=== PATIENT | female | born 1940 | race Caucasian/White ===

== ENCOUNTER 2017-04-12 13:39 | Emergency (ER) | payer MEDICARE, OTHER ==
[2017-04-12 13:52] VITALS: BP 112/52; PULSE 58; RESP 18; O2SAT 100
[2017-04-12] MEDS ORDERED: Sodium Chloride 0.9% 1,000 ML IV STA (14:08)
--- NOTE | 2017-04-12 14:16 | ED PDOC ---
Syncope/Near Syncope/Dizziness Time Seen by Provider: 04/12/17 13:43 Chief Complaint (Nursing): Dizziness/Lightheaded Chief Complaint (Provider): Dizziness/Lightheaded History Per: Patient History/Exam Limitations: no limitations Onset/Duration Of Symptoms: Days (x1) Current Symptoms Are (Timing): Still Present Additional Complaint(s): Karen Wren is a 76 year old female with previous medical history of hypertension, who presents to the emergency department with a complaint of dizziness associated with diaphoresis ongoing for 1 day. Denied any chest pain, abdominal pain or loss of consciousness. PMD: Lili Viveros MD Past Medical History Reviewed: Historical Data, Nursing Documentation, Vital Signs Vital Signs: Last Vital Signs Temp Pulse 58 L 04/12/17 13:48 Resp 18 04/12/17 13:48 BP 112/52 L 04/12/17 13:48 Pulse Ox 100 04/12/17 13:48 - Medical History PMH: Hiatal Hernia, HTN Denies: Chronic Kidney Disease - Surgical History Surgical History: Endoscopy - Family History Family History: States: Unknown Family Hx - Social History Current smoker - smoking cessation education provided: No Ex-Smoker (has not smoked in the last 12 months): No Alcohol: None Drugs: Denies - Home Medications Home Medications: Ambulatory Orders Medication Instructions Recorded Atenolol [Tenormin] 50 mg PO DAILY 05/02/16 Omeprazole 40 mg PO DAILY 05/26/16 Ranitidine HCl [Zantac 75] 75 mg PO DAILY 05/26/16 Ciprofloxacin HCl [Cipro] 500 mg PO BID #16 tablet 05/30/16 metroNIDAZOLE [Flagyl] 500 mg PO Q8H #24 tab 05/30/16 Meclizine [Meclizine*] 25 mg PO Q8 #15 tab 04/12/17 - Allergies Allergies/Adverse Reactions: Allergies Allergy/AdvReac Type Severity Reaction Status Date / Time No Known Allergies Allergy Verified 05/26/16 07:53 Review of Systems ROS Statement: Except As Marked, All Systems Reviewed And Found Negative Constitutional: Positive for: Sweats Cardiovascular: Negative for: Chest Pain Gastrointestinal: Negative for: Abdominal Pain Neurological: Positive for: Dizziness. Negative for: Other (loss of consciousness) Physical Exam - Reviewed Nursing Documentation Reviewed: Yes Vital Signs Reviewed: Yes - Physical Exam Appears: Positive for: Well, Non-toxic, No Acute Distress Head Exam: Positive for: ATRAUMATIC, NORMAL INSPECTION, NORMOCEPHALIC Skin: Positive for: Normal Color Eye Exam: Positive for: Normal appearance, EOMI, PERRL. Negative for: Nystagmus ENT: Positive for: Normal ENT Inspection Neck: Positive for: Normal Cardiovascular/Chest: Positive for: Regular Rate, Rhythm. Negative for: Chest Non Tender Respiratory: Positive for: Normal Breath Sounds, Accessory Muscle Use. Negative for: Decreased Breath Sounds, Crackles, Rales, Rhonchi, Wheezing, Respiratory Distress Gastrointestinal/Abdominal: Positive for: Normal Exam, Bowel Sounds, Soft. Negative for: Tenderness Extremity: Positive for: Normal ROM. Negative for: Tenderness, Pedal Edema, Deformity Neurologic/Psych: Positive for: Alert (x3), shirt hemmer II-XII (intact), Oriented. Negative for: Motor/Sensory Deficits, Aphasia - Laboratory Results Result Diagrams: 04/12/17 14:10 04/12/17 14:10 - ECG O2 Sat by Pulse Oximetry: 100 (RA) Pulse Ox Interpretation: Normal Medical Decision Making Medical Decision Making: Initial Impression: Dizziness Initial Plan: * EKG * CMP * CBC * NS 1,000ml IV per 100mls/hr ~ Scribe Attestation: Documented by Chela Meeks, acting as a scribe for Jonathan Blood MD. Provider Scribe Attestation: All medical record entries made by the Scribe were at my direction and personally dictated by me. I have reviewed the chart and agree that the record accurately reflects my personal performance of the history, physical exam, medical decision making, and the department course for this patient. I have also personally directed, reviewed, and agree with the discharge instructions and disposition. Disposition - Clinical Impression Clinical Impression: Dizziness - Patient ED Disposition Is Patient to be Admitted: No Counseled Patient/Family Regarding: Studies Performed, Diagnosis, Need For Followup, Rx Given - Disposition Referrals: [facility] [place] [Outside] Disposition: Routine/Home Disposition Time: 15:16 Condition: FAIR Prescriptions: Meclizine [Meclizine*] 25 mg PO Q8 #15 tab Instructions: Vertigo (ED) Forms: [facility] [employer] (Arabic) Print Language: OCCITAN
[2017-04-12 14:33] LABS: BASO % 0.3 % (0.0-2.0); EOS # 0.1 K/uL (0.0-0.7); EOS % 1.3 % (0.0-4.0); HEMATOCRIT 42.9 % (34.0-47.0); LYMPH # 1.6 K/uL (1.0-4.3); LYMPH % 20.5 % (20.0-40.0); MEAN CELL VOLUME 84.4 fl (81.0-99.0); MEAN CORPUSCULAR HEMOGLOBIN 27.5 pg (27.0-31.0); MEAN CORPUSCULAR HGB CONC 32.5 g/dL (33.0-37.0); MEAN PLATELET VOLUME 11.2 fl (7.2-11.7); MONO # 0.5 K/uL (0.0-0.8); MONO % 6.4 % (0.0-10.0); NEUT # 5.7 K/uL (1.8-7.0); NEUT % 71.5 % (50.0-75.0); NRBC % 0.1 % (0.0-0.0); RED CELL DISTRIBUTION WIDTH 14.6 % (11.5-14.5)
[2017-04-12 14:43] LABS: ALB/GLOB RATIO 1.5 (1.0-2.1); ALKALINE PHOSPHATASE 78 U/L (38-126); ALT/SGPT 40 U/L (9-52); AST/SGOT 25 U/L (14-36); BILIRUBIN,TOTAL 0.9 mg/dl (0.2-1.3); BLOOD UREA NITROGEN 27 mg/dl (7-17); CALCIUM 9.6 mg/dL (8.4-10.2); CARBON DIOXIDE 22 mmol/L (22-30); CHLORIDE 104 mmol/L (98-107); GFR AFRICAN-AMERICAN > 60; GLUCOSE,RANDOM 163 mg/dL (65-105); POTASSIUM 3.6 MMOL/L (3.6-5.0); SODIUM 144 mmol/l (132-148); TOTAL PROTEIN 7.5 G/DL (6.3-8.2)
--- NOTE | 2017-04-13 09:30 | CARD ---
APPROVED REPORT EKG Measurement Heart [id number] <Conclusion> Sinus bradycardia Possible Left atrial enlargement Borderline ECG
== END 2017-04-12 15:30 | disposition home or self-care (01) ==
LOC: H.ER 13:39
DX: R42 Dizziness and giddiness (principal); I10 Essential (primary) hypertension
CPT/HCPCS: 80053; 82948; 85025; 93005; 99284; J7040

== ENCOUNTER 2018-09-08 19:55 | Emergency (ER) | payer MEDICAID, MEDICARE, OTHER ==
[2018-09-08 19:55] VITALS: BMI 24.9
[2018-09-08 20:12] VITALS: BP 148/80; PULSE 67; RESP 18; TEMP 98.4; O2SAT 97
[2018-09-08] MEDS ORDERED: Albuterol-Ipratrop 3 mg / 0.5 (3 ml) UD IH STA (20:23)
[2018-09-08] MEDS ORDERED: Albuterol-Ipratrop 3 mg / 0.5 (3 ml) UD INH STA (20:23)
--- NOTE | 2018-09-08 20:28 | ED PDOC ---
HPI: CCC, URI, Sore Throat Time Seen by Provider: 09/08/18 20:12 Chief Complaint (Nursing): Chest Pain Chief Complaint (Provider): Cough History Per: Patient History/Exam Limitations: no limitations Onset/Duration Of Symptoms: Days (1 month) Additional Complaint(s): Cough, congestion, runny nose for 1 month. No weakness, headaches, dizziness, fever. Gets coughing spells. Saw pcp and got mucinex and not helping. Chest pain only on excessive cough. No dyspnea. No weakness, dizziness. No leg swelling. Past Medical History Reviewed: Nursing Documentation, Vital Signs Vital Signs: Last Vital Signs Temp 98.4 F 09/08/18 20:09 Pulse 67 09/08/18 20:09 Resp 18 09/08/18 20:09 BP 148/80 09/08/18 20:09 Pulse Ox 97 09/08/18 20:09 - Medical History PMH: Hiatal Hernia, HTN Denies: Chronic Kidney Disease - Surgical History Surgical History: Endoscopy - Family History Family History: States: Unknown Family Hx - Immunization History Hx Tetanus Toxoid Vaccination: No Hx Influenza Vaccination: No Hx Pneumococcal Vaccination: No - Home Medications Home Medications: Ambulatory Orders Medication Instructions Recorded Atenolol [Tenormin] 50 mg PO DAILY 05/02/16 Naproxen 500 mg PO DAILY #20 tablet 09/16/17 Albuterol Sulfate [Proair Hfa] 0.09 mg IH Q6H PRN #2 inh 09/08/18 Benzonatate [Tessalon Perles] 100 mg PO BID PRN 5 Days sgl 09/08/18 predniSONE [predniSONE Tab] 20 mg PO BID 5 Days tab 09/08/18 - Allergies Allergies/Adverse Reactions: Allergies Allergy/AdvReac Type Severity Reaction Status Date / Time No Known Allergies Allergy Verified 09/16/17 16:58 Review of Systems ROS Statement: Except As Marked, All Systems Reviewed And Found Negative ENT: Positive for: Nose Congestion Cardiovascular: Positive for: Chest Pain (on cough) Respiratory: Positive for: Cough, Sputum Physical Exam - Reviewed Nursing Documentation Reviewed: Yes Vital Signs Reviewed: Yes - Physical Exam Appears: Positive for: Non-toxic, No Acute Distress Head Exam: Positive for: ATRAUMATIC, NORMAL INSPECTION, NORMOCEPHALIC Skin: Positive for: Normal Color, Warm, DRY Eye Exam: Positive for: EOMI, Normal appearance, PERRL ENT: Positive for: Nasal Congestion Neck: Positive for: Normal, Painless ROM, Supple Cardiovascular/Chest: Positive for: Regular Rate, Rhythm Respiratory: Positive for: Decreased Breath Sounds, Wheezing (on end expiration b/l) Gastrointestinal/Abdominal: Positive for: Normal Exam, Soft. Negative for: Tenderness Back: Positive for: Normal Inspection. Negative for: L CVA Tenderness, R CVA Tenderness Extremity: Positive for: Normal ROM. Negative for: Tenderness, Pedal Edema Neurologic/Psych: Positive for: Alert, Oriented - ECG ECG: Positive for: Interpreted By Me ECG Rhythm: Positive for: Normal QRS, Normal ST Segment, Sinus Rhythm O2 Sat by Pulse Oximetry: 97 Pulse Ox Interpretation: Normal - Radiology X-Ray: Interpreted by Me, Viewed By Me X-Ray Interpretation: No Acute Disease - Progress ED Course And Treament: 2124: Stable. AAOx3. Pain free. Tolerated PO. Fu with pcp. Disposition - Clinical Impression Clinical Impression: Bronchitis - Patient ED Disposition Is Patient to be Admitted: No Counseled Patient/Family Regarding: Studies Performed, Diagnosis, Need For Followup, Rx Given - Disposition Referrals: [facility] [Outside] - 09/10/18 Disposition: Routine/Home Disposition Time: 21:26 Condition: STABLE Additional Instructions: Return if not better in 3 days. Prescriptions: Albuterol Sulfate [Proair Hfa] 0.09 mg IH Q6H PRN #2 inh PRN Reason: Wheezing Benzonatate [Tessalon Perles] 100 mg PO BID PRN 5 Days sgl PRN Reason: Cough predniSONE [predniSONE Tab] 20 mg PO BID 5 Days tab Instructions: Acute Bronchitis
--- NOTE | 2018-09-09 10:57 | RAD ---
Date of service: 09/08/2018 HISTORY: Cough. COMPARISON: No prior. TECHNIQUE: Chest PA and lateral FINDINGS: LUNGS: No active pulmonary disease. PLEURA: No significant pleural effusion identified. No pneumothorax apparent. CARDIOVASCULAR: No aortic atherosclerotic calcification present. Normal cardiac size. No pulmonary vascular congestion. OSSEOUS STRUCTURES: No significant abnormalities. VISUALIZED UPPER ABDOMEN: Normal. OTHER FINDINGS: None. IMPRESSION: No active disease. Concordant results with the preliminary interpretation rendered by the emergency department physician procedure.
== END 2018-09-08 22:44 | disposition home or self-care (01) ==
LOC: H.ER 19:55
DX: J40 Bronchitis, not specified as acute or chronic (principal); I10 Essential (primary) hypertension; Z79.899 Other long term (current) drug therapy

== ENCOUNTER 2018-10-18 20:42 | Emergency (ER) | payer MEDICARE, OTHER ==
[2018-10-18 20:42] VITALS: BMI 24.9
[2018-10-18 21:04] VITALS: BP 133/67; PULSE 63; RESP 16; TEMP 97.6; O2SAT 98
[2018-10-18] MEDS ORDERED: Lidocaine 5% Patch TD STA (21:50)
[2018-10-18] MEDS ORDERED: Lidocaine 5% Patch TD ONE (22:00)
--- NOTE | 2018-10-18 22:45 | ED PDOC ---
HPI: Chest Pain Time Seen by Provider: 10/18/18 21:12 Chief Complaint (Nursing): Chest Pain Chief Complaint (Provider): Chest Pain History Per: Patient History/Exam Limitations: no limitations Onset/Duration Of Symptoms: Hrs (x 7) Current Symptoms Are (Timing): Still Present Context: Recent Trauma Quality: "Pain" Exacerbating Factors: Deep Breathing Additional Complaint(s): 78 year old female with a history of HTN presents to the ED for evaluation of chest pain after a fall at 2 pm this afternoon. Patient tripped and fell, hitting chest, earlier today. She now reports localized pain worsened by deep breath. Patient took Nabumetone with mild relief. Denies head injury, headaches, dizziness and shortness of breath. PMD: Dr. Lili Viveros - Risk Factors TAD Risk Factors: Pos: Hypertension Past Medical History Reviewed: Historical Data, Nursing Documentation, Vital Signs Vital Signs: Last Vital Signs Temp 97.6 F 10/18/18 21:00 Pulse 63 10/18/18 21:00 Resp 16 10/18/18 21:00 BP 133/67 10/18/18 21:00 Pulse Ox 98 10/18/18 21:00 - Medical History PMH: Hiatal Hernia, HTN Denies: Chronic Kidney Disease - Surgical History Surgical History: Endoscopy - Family History Family History: States: Unknown Family Hx - Immunization History Hx Tetanus Toxoid Vaccination: No Hx Influenza Vaccination: No Hx Pneumococcal Vaccination: No - Home Medications Home Medications: Ambulatory Orders Medication Instructions Recorded Atenolol [Tenormin] 50 mg PO DAILY 05/02/16 Naproxen 500 mg PO DAILY #20 tablet 09/16/17 Albuterol Sulfate [Proair Hfa] 0.09 mg IH Q6H PRN #2 inh 09/08/18 Benzonatate [Tessalon Perles] 100 mg PO BID PRN 5 Days sgl 09/08/18 predniSONE [predniSONE Tab] 20 mg PO BID 5 Days tab 09/08/18 Lidocaine 5% [Lidoderm] 1 ea TD QAM #10 patch 10/18/18 Naproxen [Naprosyn] 500 mg PO Q12 #14 tab 10/18/18 - Allergies Allergies/Adverse Reactions: Allergies Allergy/AdvReac Type Severity Reaction Status Date / Time No Known Allergies Allergy Verified 09/16/17 16:58 Review of Systems ROS Statement: Except As Marked, All Systems Reviewed And Found Negative Constitutional: Negative for: Fever, Chills Cardiovascular: Positive for: Chest Pain Respiratory: Negative for: Shortness of Breath Neurological: Negative for: Headache, Dizziness Physical Exam - Reviewed Nursing Documentation Reviewed: Yes Vital Signs Reviewed: Yes - Physical Exam Appears: Positive for: No Acute Distress Head Exam: Positive for: ATRAUMATIC, NORMAL INSPECTION, NORMOCEPHALIC Skin: Positive for: Normal Color, Warm, Dry Eye Exam: Positive for: EOMI, Normal appearance, PERRL Neck: Positive for: Normal, Painless ROM Cardiovascular/Chest: Positive for: Regular Rate, Rhythm, Other (tenderness over fifth and sixth intercostal space at mid-clavicular line bilaterally). Negative for: Chest Non Tender, Murmur Respiratory: Positive for: Normal Breath Sounds. Negative for: Wheezing, Respiratory Distress Gastrointestinal/Abdominal: Positive for: Normal Exam, Soft. Negative for: Tenderness Back: Positive for: Normal Inspection. Negative for: L CVA Tenderness, R CVA Tenderness Extremity: Positive for: Normal ROM (x 4). Negative for: Deformity Neurological/Psych: Positive for: Awake, Alert, Normal Tone, Oriented (x 3). Negative for: Motor/Sensory Deficits - ECG O2 Sat by Pulse Oximetry: 98 (RA) Pulse Ox Interpretation: Normal Medical Decision Making Medical Decision Makin:48 Impression: 78 year old female with a chest wall injury Bilateral rib x-ray Trial of Toradol Lidoderm patch 22:40 X-ray is negative for fracture, dislocation and pneumothorax. Patient is stable for discharge with a diagnosis of rib contusion. Scribe Attestation: Documented by Gracie Whalen, acting as a scribe for Jae Marquez MD Provider Scribe Attestation: All medical record entries made by the Scribe were at my direction and personally dictated by me. I have reviewed the chart and agree that the record accurately reflects my personal performance of the history, physical exam, medical decision making, and the department course for this patient. I have also personally directed, reviewed, and agree with the discharge instructions and disposition. Disposition - Clinical Impression Clinical Impression: Rib contusion - Patient ED Disposition Is Patient to be Admitted: No - Disposition Disposition: Routine/Home Disposition Time: 22:40 Condition: STABLE Prescriptions: Lidocaine 5% [Lidoderm] 1 ea TD QAM #10 patch Naproxen [Naprosyn] 500 mg PO Q12 #14 tab Instructions: Bruised Rib (DC) Forms: [employer] (Montenegrin) Print Language: [place]
--- NOTE | 2018-10-19 09:16 | CARD ---
APPROVED REPORT Date of service: 10/18/2018 EKG Measurement Heart [id number] <Conclusion> Sinus bradycardia Otherwise normal ECG
--- NOTE | 2018-10-19 14:31 | RAD ---
Date of service: 10/18/2018 PROCEDURE: Radiographs of the chest and bilateral ribs HISTORY: Pain after fall COMPARISON: Comparison made with prior chest radiograph dated 09/08/2018. TECHNIQUE: Frontal radiograph of the chest and multiple oblique radiographs of the bilateral ribs were obtained. 5 views obtained. FINDINGS: RIGHT RIBS: No fracture or focal lesion visualized. LEFT RIBS: No of acute displaced right rib fracture or focal lesion visualized. LUNGS: Minimal bibasilar atelectasis left greater than right PLEURA: No pneumothorax or pleural fluid. CARDIOVASCULAR: Normal cardiac size. No pulmonary vascular congestion. No aortic atherosclerotic calcification present OTHER FINDINGS: Mild multilevel degenerative spondylosis of the thoracic spine IMPRESSION: Minimal bibasilar atelectasis left greater than right. No evidence of pneumothorax no definitive evidence displaced right rib fracture.. If symptoms persist or occult rib fracture suspected clinically, recommend follow-up CT scan of the chest.
== END 2018-10-18 23:07 | disposition home or self-care (01) ==
LOC: H.ER 20:42
DX: S20.219A Contusion of unspecified front wall of thorax, initial encounter (principal); W01.0XXA Fall on same level from slipping, tripping and stumbling without subsequent striking against object, initial encounter; Y92.89 Other specified places as the place of occurrence of the external cause; I10 Essential (primary) hypertension
CPT/HCPCS: 71111; 93005; 96372; 99283; J1885